=== PATIENT | male | born 1970 | race Caucasian/White ===

== ENCOUNTER → 2019-11-05 | Outpatient (CLI) | payer MEDICAID ==
[~2019-11-05] MED LIST: CATHETER FLUSH 10 ML SYR IV PRN; HOLD METFORMIN - RECEIVED CONTRAST 20 ML VIAL IV SCH; IOHEXOL 350 MG/ML 100 ML (OMNIPAQUE 350) VIAL IV ONE; NS 100 ML (IVPB) BAG IV ONE; RT-ALBUTEROL SULF 2.5 MG/3 ML PRE-MIX VIAL INH ONE
--- NOTE | 2019-11-05 13:55 | Diagnostic Imaging Report ---
PROCEDURE: CT chest with contrast only. TECHNIQUE: Multiple contiguous axial images were obtained through the chest after administration of intravenous contrast. Auto Exposure Controls were utilized during the CT exam to meet ALARA standards for radiation dose reduction. INDICATION: Dyspnea, ALLERGIC rhinitis and sinus infection. COMPARISON: Comparison is made to prior examination of 09/05/2015. FINDINGS: There are no discrete pulmonary nodules, masses, or infiltrates. There is no pleural or pericardial fluid. There is no pneumothorax. Heart size is normal. There is no pathologically enlarged adenopathy in the chest. The thoracic aorta is normal in caliber without evidence of dissection. Note is again made of atrophy of the right kidney with chronic hydronephrosis. Remainder of the intra-abdominal structures are unremarkable. IMPRESSION: No acute cardiopulmonary abnormality. Unchanged right hydronephrosis and right renal atrophy. Dictated by: Dictated on workstation # [id number]
== END ==
LOC: RAD 11:45
PROVIDERS: ATTEND Nurse Practitioner Family
DX: N13.30 Unspecified hydronephrosis (principal); N26.1 Atrophy of kidney (terminal); J30.9 Allergic rhinitis, unspecified; J32.9 Chronic sinusitis, unspecified; Z87.891 Personal history of nicotine dependence
CPT/HCPCS: 71260; 94060; 94726; 94729

== ENCOUNTER 2019-11-20 20:53 | Outpatient (CLI) | payer MEDICAID | END 2019-11-21 06:15 | disposition home or self-care (01) | LOC: SLEEP 20:53 | PROVIDERS: ATTEND Nurse Practitioner Family | DX: G47.33 Obstructive sleep apnea (adult) (pediatric) (principal); J44.9 Chronic obstructive pulmonary disease, unspecified; J32.9 Chronic sinusitis, unspecified; Z87.891 Personal history of nicotine dependence; Z72.0 Tobacco use | CPT/HCPCS: 95810 ==